=== PATIENT | female | born 1990 | race African-American/Black ===

== ENCOUNTER 2018-08-09 04:04 | Emergency (ER) | payer OTHER, SELFPAY ==
[2018-08-09] MEDS ORDERED: NA CHLORIDE 0.9% 1,000 ML ONE (04:37)
[2018-08-09] MEDS ORDERED: MORPHINE 4 MG/ML SYR ONE ×2 (04:37→05:56)
[2018-08-09] MEDS ORDERED: ONDANSETRON 4 MG/2 ML VIAL ONE ×2 (04:37→05:19)
[2018-08-09 04:45] LABS: Absolute Lymphocytes (CBC) 1.7 K/uL (0.7-4.9); Absolute Monocytes 0.6 K/uL (0.1-1.3); Absolute Neutrophil 8.9 K/uL (1.8-8.0); Basophils % 0.4 % (0-1.3); Eosinophils % 0.8 % (0-4.4); Hematocrit 35.1 % (36.0-45.0); Lymphocytes % 14.8 % (15.3-44.8); MCH 26.6 pg (27.0-35.0); MCV 79.5 fL (80-100); MPV 9.2 fL (7.6-11.3); Monocytes % 5.5 % (3.3-12.3); RBC Red Blood Cell Count 4.41 M/uL (3.86-4.86)
[2018-08-09 05:05] LABS: BUN Blood Urea Nitrogen 7 mg/dL (7-18); Bicarbonate 22 mmol/L (21-32); Glucose Level 106 mg/dL (74-106); Potassium 3.6 mmol/L (3.5-5.1); Sodium Level 138 mmol/L (136-145)
[2018-08-09 05:11] LABS: HCG, Quantitative 9832 mIU/mL (1-3)
[2018-08-09 05:56] LABS: Urine Blood 2+ (NEG); Urine Glucose NEGATIVE (NEG); Urine Protein NEGATIVE (NEG); Urine Specific Gravity 1.025 (1.005-1.030); Urine pH 5.5 (5.0-7.0)
[2018-08-09] MEDS ORDERED: HYDROMORPHONE HCL 1 MG/ML INJ ONE (06:18)
--- NOTE | 2018-08-09 06:40 | ER ---
Nurse's Notes [facility] Name: Shilpa Carnes Age: 27 yrs Sex: Female : 1990 Arrival Date: 08/09/2018 Time: 04:05 Bed 8 Private MD: Diagnosis: Incomplete spontaneous without complication Presentation: 08/09 04:14 Presenting complaint: Patient states: she is having heavy vaginal bleeding with bb abdominal cramping and back pain since approx 1900 last night pt has gone through 4 large pads since last night. Transition of care: patient was not received from another setting of care. Onset of symptoms was August 08, 2018. Risk Assessment: Do you want to hurt yourself or someone else? Patient reports no desire to harm self or others. Initial Sepsis Screen: Does the patient meet any 2 criteria? No. Patient's initial sepsis screen is negative. Does the patient have a suspected source of infection? No. Patient's initial sepsis screen is negative. Care prior to arrival: None. 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 - Social history:: Smoking status: Patient uses tobacco products, smokes one-half pack cigarettes per day, Patient/guardian denies using alcohol. - Ebola Screening: : No symptoms or risks identified at this time. Screenin:16 Abuse screen: Denies threats or abuse. Nutritional screening: No deficits noted. tl2 Tuberculosis screening: No symptoms or risk factors identified. Fall Risk None identified. Assessment: 04:20 General: Appears distressed, uncomfortable, Behavior is agitated, crying. Pain: tl2 Complains of pain in left low back and right low back, suprapubic Pain currently is 10 out of 10 on a pain scale. Quality of pain is described as crampy, Noted to be crying, guarding, moaning. Neuro: Level of Consciousness is awake, alert, obeys commands, Oriented to person, place, time, situation. Cardiovascular: Denies chest pain. Respiratory: Airway is patent Respiratory effort is even, unlabored, Respiratory pattern is regular, symmetrical. GI: Reports nausea. : Urine is clear, Reports vaginal bleeding that is bright red, heavy flow. Derm: Skin is pink, warm \T\ dry. 05:30 Reassessment: Patient appears in no apparent distress at this time. Patient and/or tl2 family updated on plan of care and expected duration. Pain level reassessed. Patient is alert, oriented x 3, equal unlabored respirations, skin warm/dry/pink. pt continuing to c/o pain, MD notified. 06:20 Reassessment: Patient and/or family updated on plan of care and expected duration. Pain ea level reassessed. Patient is alert, oriented x 3, equal unlabored respirations, skin warm/dry/pink. Pt continues to have pain, provider ordered pain medication, medication administered, pt tolerated well. 07:00 Reassessment: Pt up for discharge but transvag US ordered at 0640. tl2 07:12 Reassessment: Patient and/or family updated on plan of care and expected duration. Pain ea level reassessed. Patient is alert, oriented x 3, equal unlabored respirations, skin warm/dry/pink. Discharge instruction given to patient, verbalized the understanding of instruction. Vital Signs: 04:16 BP 130 / 93; Pulse 87; Resp 18 S; Temp 98.7(O); Pulse Ox 99% on R/A; Weight 65.77 kg tl2 (R); Height 5 ft. 3 in. (160.02 cm) (R); Pain 10/10; 05:31 BP 109 / 92; Pulse 86; Resp 16; Pulse Ox 97% on R/A; tl2 06:22 BP 101 / 68; Pulse 82; Resp 18; Pulse Ox 99% on R/A; ea 07:00 BP 99 / 68; Pulse 76; Resp 15; Pulse Ox 100% on R/A; tl2 04:16 Body Mass Index 25.68 (65.77 kg, 160.02 cm) tl2 ED Course: 04:05 Patient arrived in ED. am2 04:10 Puneet Galvan MD is Attending Physician. tw4 04:16 Triage completed. bb 04:16 Arm band placed on Patient placed in an exam room, on a stretcher, on pulse oximetry. bb Family accompanied patient. 04:16 Patient has correct armband on for positive identification. Placed in gown. Bed in low tl2 position. Call light in reach. Side rails up X 1. Adult w/ patient. 04:16 Inserted saline lock: 20 gauge in right antecubital area, using aseptic technique. tl2 Blood collected. 04:36 Brandy Garcia, KASEY is Primary Nurse. tl2 06:30 Assist provider with pelvic exam: Set up pelvic tray. Performed by Puneet Galvan MD. ea 06:40 Ricky Hylton MD is Referral Physician. tw4 06:40 Transvaginal OB In Process Unspecified. EDMS 07:12 IV discontinued, intact, bleeding controlled, No redness/swelling at site. Pressure ea dressing applied. Administered Medications: 04:37 Drug: NS 0.9% 1000 ml Route: IV; Rate: 1 bolus; Site: right antecubital; tl2 05:30 Follow up: Response: No adverse reaction; IV Status: Completed infusion; IV Intake: ea 1000ml 04:38 Drug: morphine 2 mg Route: IVP; Site: right antecubital; tl2 04:50 Follow up: Response: No adverse reaction; Pain is decreased tl2 04:38 Drug: Zofran 4 mg Route: IVP; Site: right antecubital; tl2 04:50 Follow up: Response: No adverse reaction; Nausea is decreased tl2 05:18 Drug: morphine 4 mg Route: IVP; Site: right antecubital; ea 05:40 Follow up: Response: No adverse reaction; Pain is decreased ea 06:22 Drug: Dilaudid 1 mg Route: IVP; Site: right antecubital; ea 06:59 Follow up: Response: No adverse reaction; Pain is decreased tl2 Intake: 05:30 IV: 1000ml; Total: 1000ml. ea Outcome: 06:39 Discharge ordered by . tw4 07:13 Condition: improved ea 07:13 Discharge instructions given to patient, Instructed on discharge instructions, follow up and referral plans. medication usage, Demonstrated understanding of instructions, follow-up care, medications, Prescriptions given X 1. 07:15 Discharged to home via wheelchair, with family. ea 07:19 Patient left the ED. ea Signatures: Dispatcher [facility] Della Beal RN Brandy Cotton RN RN tl2 Chloe Killian am2 Jennifer Álvarez RN RN Puneet Arriola MD MD tw4 Corrections: (The following items were deleted from the chart) 04:46 04:16 Pulse 87bpm; Resp 18bpm; Spontaneous; Pulse Ox 99% RA; Temp 98.7F Oral; 65.77 kg tl2 Reported; Height 5 ft. 3 in. Reported; BMI: 25.6; Pain 07/27; bb 05:51 04:16 PSHx: Tubal ligation; bb yenni
--- NOTE | 2018-08-09 06:40 | EDPHYS ---
Physician Documentation [facility] Name: Shilpa Carnes Age: 27 yrs Sex: Female : 1990 Arrival Date: 08/09/2018 Time: 04:05 Bed 8 Private MD: ED Physician Puneet Galvan HPI: 08/09 04:34 This 27 yrs old Black Female presents to ER via Ambulatory with complaints of Vaginal tw4 Bleeding, Abdominal Pain. 04:34 The patient presents with flank pain, on the right, on the left. Onset: The tw4 symptoms/episode began/occurred today. Modifying factors: The symptoms are alleviated by nothing, the symptoms are aggravated by nothing. Associated signs and symptoms: The patient has no apparent associated signs or symptoms. Severity of symptoms: At their worst the symptoms were moderate, in the emergency department the symptoms. The patient has not experienced similar symptoms in the past. 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 - Social history:: Smoking status: Patient uses tobacco products, smokes one-half pack cigarettes per day, Patient/guardian denies using alcohol. - Ebola Screening: : No symptoms or risks identified at this time. ROS: 04:34 Positive for vaginal bleeding. tw4 04:34 Positive for 04:34 Constitutional: Negative for fever, chills, and weight loss, Eyes: Negative for injury, pain, redness, and discharge, Cardiovascular: Negative for chest pain, palpitations, and edema, Respiratory: Negative for shortness of breath, cough, wheezing, and pleuritic chest pain, Abdomen/GI: Negative for abdominal pain, nausea, vomiting, diarrhea, and constipation, Back: Negative for injury and pain, MS/Extremity: Negative for injury and deformity, Skin: Negative for injury, rash, and discoloration. Exam: 04:34 Constitutional: The patient appears in obvious distress, moderately distressed. tw4 07:02 Constitutional: This is a well developed, well nourished patient who is awake, alert, tw4 and in no acute distress. Head/Face: Normocephalic, atraumatic. Chest/axilla: Normal chest wall appearance and motion. Nontender with no deformity. No lesions are appreciated. Cardiovascular: Regular rate and rhythm with a normal S1 and S2. No gallops, murmurs, or rubs. Normal PMI, no JVD. No pulse deficits. Respiratory: Lungs have equal breath sounds bilaterally, clear to auscultation and percussion. No rales, rhonchi or wheezes noted. No increased work of breathing, no retractions or nasal flaring. Abdomen/GI: Soft, non-tender, with normal bowel sounds. No distension or tympany. No guarding or rebound. No evidence of tenderness throughout. 07:02 : Pelvic Exam: External exam: is normal, Speculum exam: mild bleeding, a female tiller man was present for the exam. Vital Signs: 04:16 BP 130 / 93; Pulse 87; Resp 18 S; Temp 98.7(O); Pulse Ox 99% on R/A; Weight 65.77 kg tl2 (R); Height 5 ft. 3 in. (160.02 cm) (R); Pain 10/10; 05:31 BP 109 / 92; Pulse 86; Resp 16; Pulse Ox 97% on R/A; tl2 06:22 BP 101 / 68; Pulse 82; Resp 18; Pulse Ox 99% on R/A; ea 07:00 BP 99 / 68; Pulse 76; Resp 15; Pulse Ox 100% on R/A; tl2 04:16 Body Mass Index 25.68 (65.77 kg, 160.02 cm) tl2 MDM: 04:10 Patient medically screened. tw4 07:00 Differential diagnosis: ectopic , threatened Ab, inevitable Ab, complete Ab, tw4 postcoital bleeding, hemorrhage. Data reviewed: vital signs, nurses notes. Counseling: I had a detailed discussion with the patient and/or guardian regarding: the historical points, exam findings, and any diagnostic results supporting the discharge/admit diagnosis, lab results, radiology results. Medication response: Dilaudid. Response to treatment: and as a result, I will discharge patient. ED course: US reveals IUP with Low FHT's and moderate amount of subchorionic bleeding. 07:06 ED course: Estimate age 6 weeks. tw4 08/09 04:15 Order name: Abo/rh Typing tw4 08/09 04:15 Order name: Basic Metabolic Panel; Complete Time: 05:17 tw4 08/09 05:17 Interpretation: Within normal limits. tw4 08/09 04:15 Order name: CBC with Diff; Complete Time: 05:17 4 08/09 05:17 Interpretation: Normal except: WBC 11.4; MCV 79.5; HCT 35.1; HGB 11.7; MCH 26.6; LYM% tw4 14.8; ESTHER% 78.5; RDW 16.8; NEUT A 8.9. 08/09 04:15 Order name: Quantitative Hcg; Complete Time: 05:17 tw4 08/09 05:17 Interpretation: Normal except: HCGQ 9832. tw4 08/09 04:33 Order name: Urine Dipstick--Ancillary (enter results) ms 08/09 04:33 Order name: Urine --Ancillary (enter results) ms 08/09 04:15 Order name: IV Saline Lock; Complete Time: 04:23 4 08/09 06:40 Order name: Transvaginal OB EDMS 08/09 04:15 Order name: Labs collected and sent; Complete Time: 04:23 4 08/09 04:15 Order name: NPO; Complete Time: 04:24 tw4 08/09 04:15 Order name: Urine Dipstick-Ancillary (obtain specimen); Complete Time: 04:29 4 08/09 06:59 Order name: Pelvic Exam Setup; Complete Time: 06:59 tl2 Administered Medications: 04:37 Drug: NS 0.9% 1000 ml Route: IV; Rate: 1 bolus; Site: right antecubital; tl2 05:30 Follow up: Response: No adverse reaction; IV Status: Completed infusion; IV Intake: ea 1000ml 04:38 Drug: morphine 2 mg Route: IVP; Site: right antecubital; tl2 04:50 Follow up: Response: No adverse reaction; Pain is decreased tl2 04:38 Drug: Zofran 4 mg Route: IVP; Site: right antecubital; tl2 04:50 Follow up: Response: No adverse reaction; Nausea is decreased tl2 05:18 Drug: morphine 4 mg Route: IVP; Site: right antecubital; ea 05:40 Follow up: Response: No adverse reaction; Pain is decreased ea 06:22 Drug: Dilaudid 1 mg Route: IVP; Site: right antecubital; ea 06:59 Follow up: Response: No adverse reaction; Pain is decreased tl2 Disposition: 08/09/18 06:39 Discharged to Home. Impression: Incomplete spontaneous without complication. - Condition is Stable. - Discharge Instructions: Incomplete Miscarriage, Miscarriage. - Prescriptions for Tylenol- Codeine #3 300-30 mg Oral Tablet - take 2 tablet by ORAL route every 6 hours As needed; 30 tablet. - Work release form, Medication Reconciliation Form, Thank You Letter, Antibiotic Education, Prescription Opioid Use form. - Follow up: Private Physician; When: Upon discharge from the Emergency Department; Reason: Further diagnostic work-up, Recheck today's complaints, Continuance of care. Follow up: Ricky Hylton MD; When: Upon discharge from the Emergency Department; Reason: Further diagnostic work-up, Recheck today's complaints, Continuance of care. - Problem is new. - Symptoms have improved. Signatures: Dispatcher [employer] [facility] Della Camilo RN RN Brandy Avendano RN RN tl2 Jennifer Álvarez RN RN ea Wadley, Terrence, MD MD tw4 Corrections: (The following items were deleted from the chart) 05:51 04:16 PSHx: Tubal ligation; yenni hyman 06:40 04:30 OB Complete+US.RAD.BRZ ordered. [facility] 06:40 06:39 08/09/2018 06:39 Discharged to Home. Impression: Incomplete spontaneous tw4 without complication. Condition is Stable. Forms are Medication Reconciliation Form, Thank You Letter, Antibiotic Education, Prescription Opioid Use. Follow up: Private Physician; When: Upon discharge from the Emergency Department; Reason: Further diagnostic work-up, Recheck today's complaints, Continuance of care. Problem is new. Symptoms have improved. tw4 07:19 06:40 08/09/2018 06:39 Discharged to Home. Impression: Incomplete spontaneous ea without complication. Condition is Stable. Discharge Instructions: Incomplete Miscarriage, Miscarriage. Forms are Medication Reconciliation Form, Thank You Letter, Antibiotic Education, Prescription Opioid Use. Follow up: Private Physician; When: Upon discharge from the Emergency Department; Reason: Further diagnostic work-up, Recheck today's complaints, Continuance of care. Follow up: Ricky Hylton; When: Upon discharge from the Emergency Department; Reason: Further diagnostic work-up, Recheck today's complaints, Continuance of care. Problem is new. Symptoms have improved. tw4
--- NOTE | 2018-08-09 08:43 | RAD REPORT ---
EXAM DESCRIPTION: US - Transvaginal OB - 08/09/2018 6:40 am CLINICAL HISTORY: Vaginal bleeding;Abd cramping, COMPARISON: OBSTETRICAL COMPLETE dated 01/26/2011 FINDINGS: [place] shaped gestational sac is seen in the fundal endometrium with mean sac diameter of 12 mm corresponding to 6 weeks 0 days gestational age. A small embryonic pole is seen within this dorothy ewhat misshapen gestational sac. [place]-rump length is 5 mm corresponding 6 weeks 1 day gestational ag e. Heart rate is low measuring 79 BPM. A small yolk sac is seen. There is significant heterogenous/ blood product present within the canal. The placenta is not yet developed due to early gestational age. The maternal adnexa and ovaries are within normal limits. Normal Doppler blood flow was demonstrated to both ovaries. IMPRESSION: IUP findings are present with estimated gestational age of 6 weeks 1 day. However, there is a large amount of hemorrhagic material/blood product within the canal and the heart rate detected for the embryo is low measuring 79 BPM. Overall, prognosis for the is quite guarded. Close interval follow-up pelvic sonography and serial HCG levels is advised.
== END 2018-08-09 07:19 | disposition home or self-care (01) ==
LOC: ER 04:04
DX: O03.4 Incomplete spontaneous abortion without complication (principal); O99.331 Smoking (tobacco) complicating pregnancy, first trimester; F17.210 Nicotine dependence, cigarettes, uncomplicated; Z3A.01 Less than 8 weeks gestation of pregnancy
CPT/HCPCS: 36415; 76817; 80048; 81003; 81025; 84702; 85025; 86900; 86901; 96361; 96374; 96375; 99284; J1170; J2405; J7030